=== PATIENT | male | born 1980 | race American Indian/Alaskan Native ===

== ENCOUNTER 2021-08-14 10:11 | Emergency (ER) | payer SELFPAY ==
[2021-08-14 10:16] VITALS: BP 128/91
--- NOTE | 2021-08-14 10:51 | Emergency Department Report ---
ED Chest Pain HPI - General Chief Complaint: Abdominal Pain Stated Complaint: ABD PAIN Time Seen by Provider: 08/14/21 10:21 Source: patient Mode of arrival: Ambulatory Limitations: No Limitations - History of Present Illness Initial Comments: The patient was evaluated in the emergency department for symptoms described in the history of present illness. He/she was evaluated in the context of the global COVID-19 pandemic, which necessitated consideration that the patient might be at risk for infection with the virus that causes COVID-19. [facility] protocols and algorithms that pertain to the evaluation of patients at risk for COVID-19 are in a state of rapid change based on information released by regulatory bodies including the CDC and federal and state organizations. These policies and algorithms were followed during the patient's care in the emergency department. Please note that these policies, procedures and recommendations changed on a rapid basis. 40-year-old [place] male presents to the emergency room complaining of chest pain and epigastric pain for 2 weeks. Patient also complains of belching and gas that moves around his chest. He states is been going on for 2 weeks. He denies any nausea no vomiting no diarrhea. 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 He has been taking pjzz-bha-aoyizkg gas pills and liquid gas medication. He is not vaccinated for Covid. He denies any past medical history currently takes no meds and has no known drug allergies. Complaint: chest pain - Related Data Previous Rx's Medication Instructions Recorded Last Taken Type Dicyclomine [Bentyl] 10 mg PO QID PRN #20 capsule 08/14/21 Unknown Rx Omeprazole 20 mg PO QDAY #14 tablet. 08/14/21 Unknown Rx Allergies Allergy/AdvReac Type Severity Reaction Status Date / Time No Known Allergies Allergy Unverified 08/14/21 10:13 Heart Score - HEART Score History: Slightly suspicious EKG: Normal Age: < 45 Risk factors: No known risk factors Troponin: < normal limit HEART Score: 0 - EKG Read Time Time EKG Completed: 09:30 EKG Read Time: 09:35 ED Review of Systems ROS: Stated complaint: ABD PAIN Other details as noted in HPI Comment: All other systems reviewed and negative ED Past Medical Hx - Past Medical History Previous Medical History?: No - Surgical History Past Surgical History?: No - Medications Home Medications: Home Medications Medication Instructions Recorded Confirmed Last Taken Type Dicyclomine [Bentyl] 10 mg PO QID PRN #20 capsule 08/14/21 Unknown Rx Omeprazole 20 mg PO QDAY #14 tablet. 08/14/21 Unknown Rx ED Physical Exam - General Limitations: No Limitations General appearance: alert, in no apparent distress - Head Head exam: Present: atraumatic, normocephalic - Eye Eye exam: Present: normal appearance - ENT ENT exam: Present: mucous membranes moist - Neck Neck exam: Present: normal inspection - Respiratory Respiratory exam: Present: normal lung sounds bilaterally. Absent: respiratory distress, chest wall tenderness - Cardiovascular Cardiovascular Exam: Present: regular rate, normal rhythm. Absent: systolic murmur, diastolic murmur, rubs, gallop - GI/Abdominal GI/Abdominal exam: Present: soft, normal bowel sounds - Rectal Rectal exam: Present: deferred - Extremities Exam Extremities exam: Present: normal inspection - Back Exam Back exam: Present: normal inspection - Neurological Exam Neurological exam: Present: alert, oriented X3 - Psychiatric Psychiatric exam: Present: normal affect, normal mood - Skin Skin exam: Present: warm, dry, intact, normal color. Absent: rash ED Course Vital Signs 08/14/21 10:13 Temperature 97.5 F L Pulse Rate 101 H Respiratory 16 Rate Blood Pressure 128/91 O2 Sat by Pulse 100 Oximetry KJ score - Kj Score Age > 65: (0) No Aspirin use within the Past 7 Days: (0) No 3 or more CAD Risk Factors: (0) No 2 or more Angina events in past 24 hrs: (1) Yes Known CAD with more than 50% Stenosis: (0) No Elevated Cardiac Markers: (0) No ST Deviation Greater than 0.5mm: (0) No KJ Score: 1 ED Medical Decision Making - Lab Data Result diagrams: 08/14/21 10:41 08/14/21 10:41 - Radiology Data Radiology results: report reviewed Study Comments [facility] [address] [place] [address] XRay Report Signed Patient: DIVYA FLORES MR#: [id number] : 1980 Acct:[id number] Age/Sex: 40 / M ADM Date: 08/14/21 Loc: ED Attending Dr: Ordering Physician: MARTIN COYNE Date of Service: 08/14/21 Procedure(s): XR chest routine 2V Accession Number(s): [id number] cc: MARTIN COYNE Fluoro Time In Minutes: CHEST 2 VIEWS INDICATION / CLINICAL INFORMATION: sob,cough and rales. COMPARISON: None available. FINDINGS: SUPPORT DEVICES: None. HEART / MEDIASTINUM: No significant abnormality. LUNGS / PLEURA: No significant pulmonary or pleural abnormality. No pneumothorax. ADDITIONAL FINDINGS: No significant additional findings. IMPRESSION: 1. No acute findings. Signer Name: Antoine Mathews MD Signed: 08/14/2021 11:05 AM Workstation Name: [id number] Transcribed By: SB Dictated By: ANTOINE MATHEWS MD Electronically Authenticated By: ANTOINE MATHEWS MD Signed Date/Time: 08/14/211104 DD/ 04 TD/TT: - Medical Decision Making 40-year-old [place] male presents to the emergency room complaining of chest pain and epigastric pain for 2 weeks. Patient also complains of belching and gas that moves around his chest. He states is been going on for 2 weeks. He denies any nausea no vomiting no diarrhea. 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 He has been taking tair-bwv-bovcnig gas pills and liquid gas medication. He is not vaccinated for Covid. He denies any past medical history currently takes no meds and has no known drug allergies. Chest pain protocol was ordered. Chest pain protocol is negative. Patient states after having medication he feels much better. Discussed with patient that his eating habits has to improve while being on the road as he is going to have increased epigastric discomfort with greasy carryout foods. Patient verbalized understanding. The patient is resting comfortably and feeling better, is alert and in no distress. The repeat examination is unremarkable and benign. The electrocardiogram shows no signs of acute ischemia and the history, exam, diagnostic testing and current condition do not suggest that this patient is having acute myocardial infarction, significant arrhythmia, unstable angina, esophageal perforation, pulmonary embolism, aortic dissection, pneumothorax, severe pneumonia, sepsis or other significant pathology that would warrant further testing, continued ED treatment, admission, or cardiology or other specialist consultation at this point. The vital signs have been stable. The patient's condition is stable and appropriate for discharge. The patient will pursue further outpatient evaluation with primary care physician, other designated physician or billet heater. The patient and/or caregiver have expressed a clear in thorough understanding and agrees to the follow-up as instructed. Critical care attestation.: If time is entered above; I have spent that time in minutes in the direct care of this critically ill patient, excluding procedure time. ED Disposition Clinical Impression: Chest pain, unspecified, Epigastric discomfort Disposition: HOME / SELF CARE / HOMELESS Is pt being admited?: No Does the pt Need Aspirin: No Condition: Stable Instructions: Nonspecific Chest Pain, Adult, [id number], Heartburn, [id number] Additional Instructions: EKG within normal limits chest x-ray no acute abnormalities blood work are stabl e. Please avoid spicy greasy foods. Increase your water intake advance your diet as tolerated. I recommend taking medication follow-up with a billet heater and a heel sander rubber. Prescriptions: Dicyclomine [Bentyl] 10 mg PO QID PRN #20 capsule PRN Reason: Gas Pain Omeprazole 20 mg PO QDAY #14 tablet. Referrals: PRIMARY CAREMD [Primary Care Provider] - 3-5 Days [facility] [Provider Group] - 3-5 Days [facility] [Provider Group] - 3-5 Days Time of Disposition: 13:15
[2021-08-14 10:52] LABS: Basophils % (Auto) 0.2 % (0.0-1.8); Eosinophils # (Auto) 0.5 K/mm3 (0.0-0.4); Eosinophils % (Auto) 11.3 % (0.0-4.3); Hematocrit 37.9 % (35.5-45.6); Hemoglobin 12.7 gm/dl (11.8-15.2); Lymphocytes # (Auto) 1.4 K/mm3 (1.2-5.4); Lymphocytes % (Auto) 31.5 % (13.4-35.0); Mean Corpuscular HGB Conc 33 % (32-34); Mean Corpuscular Volume 87 fl (84-94); Monocytes # (Auto) 0.7 K/mm3 (0.0-0.8); Monocytes % (Auto) 15.7 % (0.0-7.3); Platelet Count 254 K/mm3 (140-440); Red Blood Count 4.38 M/mm3 (3.65-5.03); Red Cell Distribution Width 13.2 % (13.2-15.2)
--- NOTE | 2021-08-14 11:10 | XRay Report ---
CHEST 2 VIEWS INDICATION / CLINICAL INFORMATION: sob,cough and rales. COMPARISON: None available. FINDINGS: SUPPORT DEVICES: None. HEART / MEDIASTINUM: No significant abnormality. LUNGS / PLEURA: No significant pulmonary or pleural abnormality. No pneumothorax. ADDITIONAL FINDINGS: No significant additional findings. IMPRESSION: 1. No acute findings. Signer Name: Antoine Byrd MD Signed: 08/14/2021 11:05 AM Workstation Name: [id number]
[2021-08-14 11:15] LABS: Alanine Aminotransferase 13 units/L (7-56); Albumin 4.1 g/dL (3.9-5); BUN/Creatinine Ratio 14; Blood Urea Nitrogen 11 mg/dL (9-20); Calcium 8.7 mg/dL (8.4-10.2); Hemolysis Index 3
[2021-08-14] MEDS ORDERED: PANTOPRAZOLE 40 MG TAB PO ONE (11:33)
[2021-08-14] MEDS ORDERED: DICYCLOMINE 10 MG/5 ML ORAL LIQD PO ONE (11:33)
== END 2021-08-14 13:25 | disposition home or self-care (01) ==
LOC: ED 10:11
DX: R07.9 Chest pain, unspecified (principal); R10.13 Epigastric pain
CPT/HCPCS: 36415; 71046; 80053; 83690; 84484; 85025; 93005; 99283